=== PATIENT | female | born 1955 | race Caucasian/White ===

== ENCOUNTER → 2016-06-24 | Outpatient (CLI) | payer MEDICARE, OTHER ==
--- NOTE | ~2016-06-24 | MY11 ---
[facility] A Service of [facility] RADIOLOGY TEXT RESULTS PATIENT: SAVANNA RÍOS LOCATION: [facility] : 59 UNIT #: [id number] AGE: [address]: Augustine Virgen MD SEX: F ORDER DR: [id number] [facility] [address] [place], [place] [address] [id number] O MR#: [id number] Acc #: [id number] NAME: SAVANNA RÍOS : 1955 SEX: F STUDY DATE/TIME: 06/24/2016 14:30 UNIT: [facility] ROOM: STUDY DESCRIPTION: MY Mammogram Screening Dig Denis Attending Physician: Augustine Virgen Jr., M.D. Ordering Physician: Augustine Vigren Jr., M.D. Primary Care Physician: Augustine Virgen Jr., M.D. MEDICAL IMAGING REPORT This report is preliminary unless electronic signature is present EXAM Digital screening mammogram, 06/24/2016. HISTORY 60-year-old woman; positive family history. Annual screening. COMPARISONS 03/11/2009, 10/14/2011, 02/22/2013. FINDINGS Digital imaging of each breast was completed utilizing a two-view examination of each breast in craniocaudal and mediolateral-oblique projections. Review and interpretation of digital mammograms include a second review in conjunction with FDA-approved CAD device. There is a normal parenchymal presentation bilaterally consistent with the patient's age. There are no breast masses imaged and no parenchymal asymmetry is visualized. There are no suspicious microcalcifications and I see no focal architectural disturbance. NOTE Breast parenchyma is fatty replaced. IMPRESSION Negative screening digital mammogram. One-year followup recommended. Patients over the age of 40 are entered into a reminder system with target due date for the next mammogram. A result letter will also be sent to the patient. BIRADS: 1 Negative [facility] A Service of [facility] RADIOLOGY TEXT RESULTS PATIENT: SAVANNA RÍOS LOCATION: [facility] : 59 UNIT #: [id number] AGE: [address]: Augustine Virgen MD SEX: F ORDER DR: Dictated by... Augustine Gutierrez M.D. THIS IS AN ELECTRONICALLY VERIFIED REPORT Augustine Gutierrez M.D. at 06/27/2016 8:01 AM SRI/cornelio TD: 06/24/2016 18:22 JOB #: [id number] MEDICAL IMAGING REPORT Page 1 of 1 COPY
== END | disposition home or self-care (01) ==
LOC: CWCC 14:15
DX: Z12.31 Encounter for screening mammogram for malignant neoplasm of breast (principal); Z80.3 Family history of malignant neoplasm of breast; R92.8 Other abnormal and inconclusive findings on diagnostic imaging of breast
CPT/HCPCS: G0202